=== PATIENT | female | born 1955 | race Caucasian/White ===

== ENCOUNTER 2016-04-15 00:16 | Inpatient (IN) | payer MEDICARE, MEDICAID ==
[2016-04-15] MEDS ORDERED: IOPAMIDOL 370 (76%) 100 ML VIAL IV ONE (00:17)
[2016-04-15] MEDS ORDERED: KETAMINE HCL 50 MG/1 ML 10ML VIAL ONE (00:25)
[2016-04-15] MEDS ORDERED: SODIUM CHLORIDE 0.9% 1,000 ML ONE (00:32)
[2016-04-15] MEDS ORDERED: LACTATED RINGERS 1,000 ML ONE ×2 (00:46→01:42)
[2016-04-15 00:51] LABS: ABSOLUTE NEUTROPHIL COUNT 10.1 K/mm3 (1.8-7.7); BASO % 0.3 % (0.2-1.0); EOS % 0.1 % (0.9-2.9); HEMATOCRIT 38.4 % (37.0-47.0); HEMOGLOBIN 12.3 gm/l (12.0-16.0); IMM NEUT # 0.1 K/mm3 (0-0.2); IMM NEUT% 0.7 % (0-1); LYMPH # 1.1 (1.0-4.8); LYMPH % 9.6 % (15-45); MEAN CELL VOLUME 91.2 fl (81.0-99.0); MEAN CORPUSCULAR HEMOGLOBIN 29.2 pg (27.0-31.0); MONO # 0.4 (0.0-0.8); MONO % 3.4 % (4-12); NEUT % 85.9 % (43-75); PLATELET COUNT 233 K/mm3 (130-400); RED CELL DISTRIBUTION WIDTH 14.4 % (11.5-14.5)
[2016-04-15 01:10] LABS: ALBUMIN 3.3 gm/dL (3.5-5.7); CALCIUM 8.5 mg/dL (8.6-10.3)
[2016-04-15 01:35] LABS: TROPONIN I 0.34 ng/ml (0.0-0.06)
[2016-04-15 01:38] LABS: CKMB ISOENZYME 3.6 ng/ml (0.6-6.3)
[2016-04-15] MEDS ORDERED: ASPIRIN CHEWTAB 81 MG TABLET ONE (01:41)
[2016-04-15 01:44] LABS: THYROID STIMULATING HORMONE 1.73 uIU/ml (0.34-5.60)
[2016-04-15 04:40] VITALS: BMI 52.7
[2016-04-15] MEDS ORDERED: BISACODYL 10 MG SUP PR PRN (05:14)
[2016-04-15] MEDS ORDERED: MAGNESIUM HYDROXIDE 30 ML UDCUP PO PRN (05:14)
[2016-04-15] MEDS ORDERED: BISACODYL 5 MG TABLET.EC PO PRN (05:14)
[2016-04-15] MEDS ORDERED: MENTHOL/CETYLPYRD 1 EACH LOZENGE PO PRN (05:14)
[2016-04-15] MEDS ORDERED: BLISTEX LIPSTICK 1 EACH TP PRN (05:14)
[2016-04-15] MEDS ORDERED: AZITHROMYCIN 500 MG in SODIUM CHLORIDE 0.9% 250 ML IV SCH (05:15)
[2016-04-15] MEDS ORDERED: INSULIN ASPART (DOSE) 100 UNITS/1 ML SUB-Q PRN (05:35)
[2016-04-15] MEDS ORDERED: CEFTRIAXONE 1 GRAM DUPLEX 1 G in Premix (D5W) 50 ml 1 EACH IV SCH (06:00)
--- NOTE | 2016-04-15 07:00 | HP ---
Leticia Boone CHIEF COMPLAINT: Dyspnea. HISTORY OF PRESENT ILLNESS: The patient is a 61-year-old female with a history of atrial fibrillation intermittently over the last five years who presents to the emergency department regarding dyspnea x2 days. She has had a cough with malaise and some subjective fevers. She tried an inhaler at home without much improvement. In the emergency department she was noted to have atrial fibrillation with rapid ventricular response with a tachycardia to 160 beats minute and underwent cardioversion with Ketamine. She had a normal CK at that time. Post-cardioversion she reports feeling much better with resolution of her headache and her dyspnea has improved although, she still has chest wheezing and feels a little dizzy. She does acknowledge missing a dose of metoprolol the day before yesterday when she was sick. Emergency room doctors had spoken with ditto machine operator and they requested consideration for a follow up echocardiogram. Her CTA of the chest did not show a pulmonary embolus, but did have a suggestion of infiltrate with some small pleural effusion noted. PAST MEDICAL HISTORY: Patient denies history of diabetes. She has had atrial fibrillation and has been on Pradaxa, hyperlipidemia, hypertension, morbid obesity, and osteoarthritis. PAST SURGICAL HISTORY: Remarkable for coronary angiogram in 2011, RENATA 2011, 65% ejection fraction noted at that time, moderate left ventricular hypertrophy, colonoscopy 2016 with two polyps noted, history of surgery for broken leg, and a carpal tunnel surgery bilaterally. ALLERGIES: LISTED CODEINE CAUSES NAUSEA. MEDICATIONS: She takes: 1. Pradaxa 150 mg by mouth twice daily. 2. She reports taking Arthrotec 75/200 mcg by mouth twice daily, but in the generic form which are not a combined medicine. 3. Metoprolol XL 25 plus 50 mg for a total of 75 mg daily. SOCIAL HISTORY: She is single, not . Lives alone in [place]. Daughter lives in [place]. She is on disability due to her arthritis. She does not smoke. Reports less than two drinks per week. Occasional marijuana use. She denies methamphetamines. Pets: She has a dog. No particular synagogue affiliation. Hobbies include crocheting, reading, gardening, and volunteering although, she is limited by her arthritis. FAMILY HISTOR: Father is 87 and he has had a history of colon cancer which has reoccurred recently. Mom at 65 of leukemia. Daughter has been healthy. REVIEW OF SYSTEMS: Eyes, ears, nose and throat have been okay. A little stuffy nose and a little sore throat. Cough with no phlegm produced. She does not normally use supplemental oxygen. She has had no particular chest discomfort at this time. No chest pain. She does have intermittent atrial fibrillation and is on Pradaxa and metoprolol for this. The metoprolol usually keeps her in normal sinus rhythm. She has not been on any cough or cold medicines recently. The wheezing has been increased recently. Stomach: Some nausea. A little bit of loose stools. No black tarry stools. No urinary complaints. No breast complaints. Legs: A little bit of swelling noted. She notes she has some circulation difficulties. No history of stroke. She does not have a POLST form. She did get a flu shot this year, but states she has not had a pneumonia shot. PHYSICAL EXAMINATION: GENERAL: Nontoxic female. Slight upper airway wheezing noted. VITAL SIGNS: 5 feet, 4 inches, 139.4 kg, temperature 97.7, blood pressure 147/84, respiration is 18, 99% saturation on 4 liters. HEENT: Head is normocephalic, atraumatic. Ears are unremarkable. Ears are normal. Nose is normal. Mouth unremarkable. NECK: Supple. No JVD, no thyromegaly. LUNGS: With some upper chest and upper airway wheezing noted. Lateral lower chest with fairly good air movement with bronchovesicular sounds. HEART: Generally regular rate and rhythm with a 2/6 systolic murmur noted across the pericardium. ABDOMEN: Obese, nontender, nondistended. Bowel sounds are normal. No rebound, no guarding. GENITOURINARY: Deferred. BREAST: Deferred. EXTREMITIES: No clubbing, cyanosis, or edema. Pulses are good throughout. NEUROLOGIC: Cranial nerves are intact. Speech is clear and appropriate. LABORATORY: White count 11.7, hemoglobin 12.3, platelets 233. Lactate 1.7. Sodium 134, potassium 3.6, chloride 100, CO2 22, BUN 17, creatinine 1.1, glucose 179, calcium 8.5. AST 118, ALT 82, alk phos is 87, troponin 0.34, CK-MB 3.6, albumin 3.3, globulin 3.3. TSH is 1.73. DIAGNOSTICS: EKG atrial fibrillation with rapid ventricular response 160 beats per minute lateral converted to normal sinus rhythm 79 beats per minute, right atrial enlargement, nonspecific T-wave abnormalities. CTA of the chest shows no pulmonary embolism, no dissection, but there are some pulmonary infiltrates, right greater than left particular in the upper lung greene, small pleural effusion is noted, nonspecific mediastinal lymph nodes. ASSESSMENT AND PLAN: 1. Episode of atrial fibrillation with paroxysmal atrial fibrillation now much improved after cardioversion and denominational of normal sinus rhythm under Ketamine. Appreciate emergency room care and cardioversion. Continue on telemetry Intermediate Care Unit. We will monitor and plan to check echocardiogram. 2. CTA with changes suggestive of community acquired pneumonia suspect bacterial community acquired pneumonia. Will check sputum and will also check influenza. Anticipate use of Rocephin, azithromycin and will consider for nebulizer as needed although, would seek to avoid significant tachycardia. 3. Morbid obesity, body mass index 52.8. 4. Elevated liver enzymes. Suspect nonalcoholic steatohepatitis. 5. Elevated troponin with normal CK. Suspect this strain from tachycardia. Will recheck and will be checking echocardiogram. 6. Osteoarthritis on Arthrotec. Will add proton pump inhibitor for the time being particularly in the setting of being on Pradaxa as this would increase her risk for gastrointestinal bleed. Will add Protonix due to being on Pradaxa. The misoprostol offers some degree of protection from Diclofenac, but still with concern for a potential for gastrointestinal bleed. 7. History of dyslipidemia. Patient reports she is not taking her Crestor currently. 8. Venous thrombosis prophylaxis. She is on Pradaxa. 9. Full code status. 10. Elevated blood sugars. Will check A1c and consider monitoring capillary blood glucoses while she is here. JOB: [id number] CC: Dr. Macy Hidalgo, MARVIN
[2016-04-15] MEDS ORDERED: PUMP TUBING ONE (07:32)
--- NOTE | 2016-04-15 07:40 | CT ---
Exam: CT angiogram chest with contrast Comparison: None History: Hypotension and dyspnea. Technique: CT angiogram of the chest was obtained following the administration of 80 mL Isovue-370 intravenous contrast using a CT angiogram pulmonary embolism protocol which was supplemented with multiplanar 3-D reformations constructed at an independent workstation. Findings: Examination is limited due to motion artifact. There is no evidence of acute pulmonary thromboembolic disease through the proximal subsegmental level. There is patchy centrally predominant airspace disease throughout the right lung, more pronounced within the right upper lobe. Similar findings but to a much lesser extent are seen within the left upper lobe. This is on a background of mosaic attenuation, which could be related to chronic small airways disease. There are tiny bilateral pleural effusions. There is no significant pericardial effusion. Coronary calcifications are noted within the proximal LAD. There is mild panchamber cardiomegaly. Mediastinal and hilar lymph nodes are more significant for number rather than size Limited evaluation of the upper abdomen demonstrates hepatic steatosis but is otherwise unremarkable. No worrisome lytic or blastic osseous lesion is identified. Bridging osteophytes are seen within the thoracic spine. IMPRESSION: 1. Patchy centrally predominant airspace disease, right much greater than left, most pronounced within the right upper lobe. Differential considerations include pneumonia or asymmetric pulmonary edema. Tiny bilateral pleural effusions are present. 2. No evidence of acute pulmonary thromboembolic disease to the proximal subsegmental level. Preliminary report transmitted to the emergency department from [address] at 0230 hours 04/15/2016.
[2016-04-15] MEDS: PANTOPRAZOLE 40 MG TABLET DR PO SCH (07:44)
[2016-04-15] MEDS: CEFTRIAXONE 1 GRAM DUPLEX 1 G in Premix (D5W) 50 ml 1 EACH IV SCH (07:44)
[2016-04-15] MEDS: AZITHROMYCIN 500 MG in SODIUM CHLORIDE 0.9% 250 ML IV SCH (08:11)
[2016-04-15] MEDS: METOPROLOL SUCCINATE (XL) 50 MG TAB.PRT.SR PO SCH ×2 (08:50→20:56)
[2016-04-15] MEDS: DICLOFENAC SODIUM 75 MG TABLET.EC PO SCH ×2 (08:50→20:59)
[2016-04-15] MEDS: MISOPROSTOL 100 MCG TABLET PO SCH ×2 (08:50→20:58)
[2016-04-15] MEDS ORDERED: PNEUMOCOCCAL 23-VAL P-SAC VAC 0.5 ML VIAL IM V ONE (09:00)
[2016-04-15] MEDS ORDERED: DABIGATRAN ETEXILATE MESYLATE 150 MG CAPSULE PO SCH (09:00)
[2016-04-15] MEDS: DOCUSATE SODIUM 100 MG CAPSULE PO SCH ×2 (09:20→20:56)
[2016-04-15 11:28] LABS: A1C-GLYCOHEMOGLOBIN 0.4 g/dl; HEMOGLOBIN-GLYCO 11.7 g/dl
[2016-04-15] MEDS: DABIGATRAN ETEXILATE MESYLATE 75 MG CAPSULE PO SCH (21:02)
[2016-04-16 05:40] LABS: ABSOLUTE NEUTROPHIL COUNT 5.1 K/mm3 (1.8-7.7); BASO % 0.6 % (0.2-1.0); EOS # 0.1 (0.0-0.5); EOS % 1.6 % (0.9-2.9); HEMATOCRIT 35.2 % (37.0-47.0); IMM NEUT% 0.6 % (0-1); LYMPH # 0.7 (1.0-4.8); LYMPH % 10.9 % (15-45); MEAN CELL VOLUME 93.9 fl (81.0-99.0); MEAN CORPUSCULAR HEMOGLOBIN 29.3 pg (27.0-31.0); MEAN CORPUSCULAR HGB CONC 31.3 g/dl (33.0-37.0); MEAN PLATELET VOLUME 10.9 fl (7.4-10.4); MONO # 0.4 (0.0-0.8); NEUT % 80.3 % (43-75); PLATELET COUNT 192 K/mm3 (130-400); RED CELL DISTRIBUTION WIDTH 14.5 % (11.5-14.5)
[2016-04-16 05:59] LABS: CALCIUM 8.3 mg/dL (8.6-10.3)
[2016-04-16 06:01] LABS: CKMB ISOENZYME 5.2 ng/ml (0.6-6.3)
[2016-04-16 06:07] LABS: TROPONIN I 1.92 ng/ml (0.0-0.06)
[2016-04-16] MEDS: PANTOPRAZOLE 40 MG TABLET DR PO SCH (07:36)
[2016-04-16] MEDS: AZITHROMYCIN 500 MG in SODIUM CHLORIDE 0.9% 250 ML IV SCH (07:36)
[2016-04-16] MEDS: ACETAMINOPHEN 325 MG TABLET PO PRN ×2 (08:15→16:53)
[2016-04-16] MEDS: CEFTRIAXONE 1 GRAM DUPLEX 1 G in Premix (D5W) 50 ml 1 EACH IV SCH (08:32)
--- NOTE | 2016-04-16 09:54 | PDOC43 ---
- Subjective Chief Complaint: Rapid Heart Rate, s/p conversion Patient reports she was feeling pretty good yesterday, but last night/today has had a lot of wheezing/cough, and notes stomach a bit upset. HR has been doing ok. She has spoken with her PCP about NSAIDs and use of anticoagulants. She is aware of increased risks of significant bleeding, but this was the best solution for her (Arthrotec). Did suggest she could review other options with PCP about celebrex and/or use of a PPI. - Objective Vital Signs Temperature 98.9 F 04/16/16 07:00 Pulse Rate 66 04/16/16 07:00 Respiratory Rate 28 04/16/16 09:00 Blood Pressure 145/85 04/16/16 07:00 O2 Saturation by Pulse Oximetry 92 04/16/16 08:28 Oxygen Delivery Method Room Air Oxygen Flow Rate 0 Vital Signs Last 12 Hours Temp Pulse Resp BP Pulse Ox 04/16/16 09:00 28 04/16/16 08:28 92 04/16/16 07:00 98.9 F 66 28 145/85 96 04/16/16 02:42 26 04/16/16 02:40 98.1 F 64 26 144/72 95 04/15/16 23:00 98.6 F 86 24 133/61 97 Sats ok, but nurse left O2 on. Intake and Output 04/14/16 04/15/16 04/16/16 23:59 23:59 23:59 Intake Total 3308 500 Output Total 1675 600 Balance 1633 -100 General: Alert, Cooperative, Mild Distress (did have some crying last night, difficulty with breathing/cough.) HEENT: Atraumatic Lungs: Other (considerable bilat wheezes, more upper airway.) Cardiovascular: Regular Rate and Rhythm Abdomen: Soft, Normal Bowel Sounds, No Tenderness, No Rebounding Extremities: No Edema Skin: Normal Color Neurological: Normal Speech Psych/Mental Status: Normal Affect (anxious) Laboratory 04/16/16 05:20 04/16/16 05:20 04/16/16 04/15/16 04/15/16 05:20 12:10 12:08 RBC 3.75 L MCHC 31.3 L POC Capillary Glucose 102 H Calcium 8.3 L AST 75 H ALT 80 H Creatine Kinase 301 H CK-MB (CK-2) Troponin I 1.92 H* 3.64 H* Total Protein 6.1 L Albumin 3.0 L 04/15/16 12:00 RBC MCHC POC Capillary Glucose Calcium AST ALT Creatine Kinase 453 H CK-MB (CK-2) 21.9 H Troponin I Total Protein Albumin Laboratory Tests 04/15/16 04/15/16 04/15/16 00:30 12:00 12:10 Creatine Kinase CK-MB (CK-2) 3.6 21.9 H Troponin I 0.34 H 3.64 H* 04/16/16 05:20 Creatine Kinase 301 H CK-MB (CK-2) 5.2 Troponin I 1.92 H* Current Medications: Current meds reviewed in EMR. Active Medications Acetaminophen (Tylenol) 650 mg PO Q6H PRN PRN Reason: Pain or Temperature > 100.5 F Last Admin: 04/16/16 08:15 Dose: 650 mg Benzocaine/Menthol (Cepacol) 1 each PO PRN PRN PRN Reason: Sore Throat Bisacodyl (Dulcolax) 10 mg [place] DAILY PRN PRN Reason: Constipation Bisacodyl (Dulcolax) 5 mg PO DAILY PRN PRN Reason: Constipation Dabigatran (Pradaxa) 150 mg PO BID [facility] Last Admin: 04/15/16 21:02 Dose: 150 mg Diclofenac Sodium (Voltaren) 75 mg PO BID [facility] Last Admin: 04/15/16 20:59 Dose: 75 mg Docusate Sodium (Colace) 100 mg PO BID [facility] Last Admin: 04/15/16 20:56 Dose: Not Given Sodium Chloride (Sodium Chloride 0.9%) 100 mls @ 25 mls/hr IV PRN PRN PRN Reason: Flush Azithromycin 500 mg/ Sodium (Chloride) 250 mls @ 250 mls/hr IV Q24H [facility] Last Admin: 04/16/16 07:36 Dose: 250 mls/hr Ceftriaxone Sodium/Dextrose 1 (g/ Premix (D5W) 50 ml) 50 mls @ 100 mls/hr IV Q24H [facility] Last Admin: 04/16/16 08:32 Dose: 100 mls/hr Insulin Aspart (Novolog (Dose)) 0 units SUB-Q WM/BEDTIME PRN; Protocol PRN Reason: Blood Sugar > Magnesium Hydroxide (Milk Of Magnesia) 30 ml PO DAILY PRN PRN Reason: Constipation Metoprolol Succinate (Toprol Xl) 25 mg PO DAILY [facility] Last Admin: 04/15/16 08:50 Dose: 25 mg Metoprolol Succinate (Toprol Xl) 50 mg PO BEDTIME [facility] Last Admin: 04/15/16 20:56 Dose: 50 mg Misoprostol (Cytotec) 200 mcg PO BID [facility] Last Admin: 04/15/16 20:58 Dose: 200 mcg Pantoprazole Sodium (Protonix) 40 mg PO QAMAC [facility] Last Admin: 04/16/16 07:36 Dose: 40 mg Petrolatum/Paraffin/Mineral Oil (Blistex) 1 each TP PRN PRN PRN Reason: Dry and/or chapped lips Sodium Chloride (Normal Saline 10ml Flush) 10 - 50 ml IV PRN PRN PRN Reason: IV Flush Last Admin: 04/15/16 07:45 Dose: 10 ml Sodium Chloride (Normal Saline 10ml Flush) 10 ml IV Q8HR [facility] Last Admin: 04/16/16 02:34 Dose: 10 ml - Problems: Assessment/Plan (1) CAP (community acquired pneumonia) Status: AcuteAssessment/Plan: Continue with abx, recheck CXR. With wheezing, will try nebs. (2) Atrial fibrillation status post cardioversion Status: ChronicAssessment/Plan: appears to be doing well post cardioversion. (3) Morbid obesity with BMI of 50.0-59.9, adult Status: ChronicAssessment/Plan: affecting respiration, care. VTE Prophylaxis: Eliquis Disposition: Plan Med/Surg, check CXR, and anticipate return to home when respiratory status improved.
[2016-04-16] MEDS: ALBUTEROL/IPRATROPIUM 2.5/0.5 MG 3 ML/EACH DOSE NEB PRN ×2 (10:27→16:15)
[2016-04-16] MEDS: METOPROLOL SUCCINATE (XL) 50 MG TAB.PRT.SR PO SCH ×2 (10:35→20:11)
[2016-04-16] MEDS: DABIGATRAN ETEXILATE MESYLATE 75 MG CAPSULE PO SCH ×2 (10:35→20:11)
[2016-04-16] MEDS: DOCUSATE SODIUM 100 MG CAPSULE PO SCH ×2 (10:35→20:10)
[2016-04-16] MEDS: DICLOFENAC SODIUM 75 MG TABLET.EC PO SCH ×2 (10:35→20:10)
[2016-04-16] MEDS: MISOPROSTOL 100 MCG TABLET PO SCH ×2 (10:35→20:10)
--- NOTE | 2016-04-16 11:05 | RAD ---
Name: ISHA MEJÍA Exam: Two-view chest Comparison: 11/08/2011 Clinical history: Wheezing Findings: 2 views of the chest are submitted. Heart, mediastinum and hilar structures are normal. There is mild diffuse infiltrate right lung and a small amount of infiltrate left lung. Appearance of the chest is worsened from the prior. There is no pleural effusion or pneumothorax. Regional skeleton is within normal limits. Impression: Developing right greater than left pneumonia
[2016-04-16] MEDS ORDERED: ALBUTEROL NEB 2.5 MG/3 ML VIAL.NEB NEB PRN (20:32)
--- NOTE | 2016-04-17 06:45 | PDOC43 ---
- Subjective Chief Complaint: Rapid Heart Rate, s/p conversion; CAP Patient reports not sleeping well due to breathing, but better than the previous night. Ate some, able to get around some, didn't try walking or showering. No new c/o. - Objective Vital Signs Temperature 98.1 F 04/17/16 04:00 Pulse Rate 61 04/17/16 04:00 Respiratory Rate 20 04/17/16 04:00 Blood Pressure 129/82 04/17/16 04:00 O2 Saturation by Pulse Oximetry 97 04/17/16 04:00 Oxygen Delivery Method Nasal Cannula Oxygen Flow Rate 2 Vital Signs Last 12 Hours Temp Pulse Resp BP Pulse Ox 04/17/16 04:00 98.1 F 61 20 129/82 97 04/17/16 01:10 22 04/17/16 00:00 99.0 F 72 22 121/66 96 04/16/16 20:44 71 18 95 04/16/16 20:21 36 95 04/16/16 19:41 34 04/16/16 19:00 97.9 F 74 22 125/72 95 Intake and Output 04/15/16 04/16/16 04/17/16 23:59 23:59 23:59 Intake Total 3308 1100 750 Output Total 1675 1075 700 Balance 1633 25 50 General: Alert, Cooperative, No Acute Distress Lungs: Other (Wheezing R>L, prolonged exp phase.) Cardiovascular: Regular Rate and Rhythm Abdomen: Soft, Normal Bowel Sounds, Non-Distended Extremities: No Edema, No Tenderness Neurological: Normal Speech Psych/Mental Status: Normal Affect Laboratory 04/16/16 05:20 04/16/16 05:20 04/16/16 05:15 B-Natriuretic Peptide 180 H Blood culture pending - neg so far Sputum culture pending so far. Current Medications: Current meds reviewed in EMR. Active Medications Acetaminophen (Tylenol) 650 mg PO Q6H PRN PRN Reason: Pain or Temperature > 100.5 F Last Admin: 04/16/16 16:53 Dose: 650 mg Albuterol Sulfate (Ventolin Inhalation Solution (Dose)) 2.5 mg NEB Q2H PRN PRN Reason: Wheezing Last Admin: 04/16/16 20:44 Dose: 2.5 mg Albuterol/Ipratropium (Duoneb) 3 ml NEB Q6H PRN PRN Reason: Wheezing Last Admin: 04/16/16 16:15 Dose: 3 ml Benzocaine/Menthol (Cepacol) 1 each PO PRN PRN PRN Reason: Sore Throat Bisacodyl (Dulcolax) 10 mg [place] DAILY PRN PRN Reason: Constipation Bisacodyl (Dulcolax) 5 mg PO DAILY PRN PRN Reason: Constipation Dabigatran (Pradaxa) 150 mg PO BID [facility] Last Admin: 04/16/16 20:11 Dose: 150 mg Diclofenac Sodium (Voltaren) 75 mg PO BID [facility] Last Admin: 04/16/16 20:10 Dose: 75 mg Docusate Sodium (Colace) 100 mg PO BID [facility] Last Admin: 04/16/16 20:10 Dose: Not Given Sodium Chloride (Sodium Chloride 0.9%) 100 mls @ 25 mls/hr IV PRN PRN PRN Reason: Flush Azithromycin 500 mg/ Sodium (Chloride) 250 mls @ 250 mls/hr IV Q24H [facility] Last Admin: 04/16/16 07:36 Dose: 250 mls/hr Ceftriaxone Sodium/Dextrose 1 (g/ Premix (D5W) 50 ml) 50 mls @ 100 mls/hr IV Q24H [facility] Last Admin: 04/16/16 08:32 Dose: 100 mls/hr Insulin Aspart (Novolog (Dose)) 0 units SUB-Q WM/BEDTIME PRN; Protocol PRN Reason: Blood Sugar > Magnesium Hydroxide (Milk Of Magnesia) 30 ml PO DAILY PRN PRN Reason: Constipation Metoprolol Succinate (Toprol Xl) 25 mg PO DAILY [facility] Last Admin: 04/16/16 10:35 Dose: 25 mg Metoprolol Succinate (Toprol Xl) 50 mg PO BEDTIME [facility] Last Admin: 04/16/16 20:11 Dose: 50 mg Misoprostol (Cytotec) 200 mcg PO BID [facility] Last Admin: 04/16/16 20:10 Dose: 200 mcg Pantoprazole Sodium (Protonix) 40 mg PO QAMAC [facility] Last Admin: 04/16/16 07:36 Dose: 40 mg Petrolatum/Paraffin/Mineral Oil (Blistex) 1 each TP PRN PRN PRN Reason: Dry and/or chapped lips Sodium Chloride (Normal Saline 10ml Flush) 10 - 50 ml IV PRN PRN PRN Reason: IV Flush Last Admin: 04/15/16 07:45 Dose: 10 ml Sodium Chloride (Normal Saline 10ml Flush) 10 ml IV Q8HR [facility] Last Admin: 04/17/16 00:53 Dose: 10 ml - Problems: Assessment/Plan (1) CAP (community acquired pneumonia) Status: AcuteAssessment/Plan: Presumed bacterial; organism not known. Present on admission/evident on CXR within 48 hr of admission Continue with abx, recheck CXR showed R>L pneumonia. Nebs somewhat helpful with wheezing On O2 supplement for resp distress. Encouraged activity, shower. (2) Atrial fibrillation status post cardioversion Status: ChronicAssessment/Plan: appears to be doing well post cardioversion. Stable rate Suspect that pneumonia was initial provoking cause for atrial fib (3) Morbid obesity with BMI of 50.0-59.9, adult Status: ChronicAssessment/Plan: affecting respiration, care. VTE Prophylaxis: Eliquis Disposition: anticipate return to home when respiratory status improving.
[2016-04-17] MEDS ORDERED: SODIUM CHLORIDE 0.9% 1,000 ML IV SCH (07:00)
--- NOTE | 2016-04-17 07:24 | RAD ---
History: Follow-up pneumonia. Comparison: 04/16/2016 Technique: 2 views Findings: 2 views of the chest demonstrate multilevel thoracic degenerative changes. The heart size is stable. Patchy areas of airspace density are seen within both lower lung zones, right greater than left. The appearance is unchanged from the appearance on prior exam. No effusion is seen. The hilar and mediastinal structures are intact. Impression: 1. Bibasilar infiltrates, right greater than left. The appearance is unchanged from the appearance on prior exam of 04/16/2016.
[2016-04-17] MEDS: ALBUTEROL/IPRATROPIUM 2.5/0.5 MG 3 ML/EACH DOSE NEB PRN ×2 (07:38→16:35)
[2016-04-17] MEDS ORDERED: PUMP TUBING ONE (07:39)
[2016-04-17] MEDS: AZITHROMYCIN 500 MG in SODIUM CHLORIDE 0.9% 250 ML IV SCH (07:48)
[2016-04-17] MEDS: PANTOPRAZOLE 40 MG TABLET DR PO SCH (07:49)
[2016-04-17] MEDS: SODIUM CHLORIDE 0.9% 100 ML IV PRN (07:49)
[2016-04-17] MEDS: CEFTRIAXONE 1 GRAM DUPLEX 1 G in Premix (D5W) 50 ml 1 EACH IV SCH (09:10)
[2016-04-17] MEDS: ACETAMINOPHEN 325 MG TABLET PO PRN (09:52)
[2016-04-17] MEDS: METOPROLOL SUCCINATE (XL) 50 MG TAB.PRT.SR PO SCH ×2 (09:52→20:54)
[2016-04-17] MEDS: DOCUSATE SODIUM 100 MG CAPSULE PO SCH ×2 (09:52→20:54)
[2016-04-17] MEDS: MISOPROSTOL 100 MCG TABLET PO SCH ×2 (09:54→20:54)
[2016-04-17] MEDS: DABIGATRAN ETEXILATE MESYLATE 75 MG CAPSULE PO SCH ×2 (09:55→20:54)
[2016-04-17] MEDS: DICLOFENAC SODIUM 75 MG TABLET.EC PO SCH ×2 (09:55→20:54)
[2016-04-18 06:20] LABS: ABSOLUTE NEUTROPHIL COUNT 2.5 K/mm3 (1.8-7.7); BASO % 0.7 % (0.2-1.0); EOS # 0.2 (0.0-0.5); EOS % 3.7 % (0.9-2.9); HEMATOCRIT 35.7 % (37.0-47.0); HEMOGLOBIN 11.3 gm/l (12.0-16.0); IMM NEUT% 0.6 % (0-1); LYMPH # 2.3 (1.0-4.8); LYMPH % 41.8 % (15-45); MEAN CELL VOLUME 93.2 fl (81.0-99.0); MEAN CORPUSCULAR HEMOGLOBIN 29.5 pg (27.0-31.0); MEAN CORPUSCULAR HGB CONC 31.7 g/dl (33.0-37.0); MEAN PLATELET VOLUME 10.2 fl (7.4-10.4); MONO # 0.4 (0.0-0.8); MONO % 6.6 % (4-12); NEUT % 46.6 % (43-75); PLATELET COUNT 225 K/mm3 (130-400); RED CELL DISTRIBUTION WIDTH 14.1 % (11.5-14.5)
[2016-04-18 06:45] LABS: ALBUMIN 3.1 gm/dL (3.5-5.7); CALCIUM 9.4 mg/dL (8.6-10.3)
[2016-04-18 07:17] LABS: PLATELET ESTIMATE NORMAL (NORMAL); TOTAL CELLS COUNTED 100
[2016-04-18 07:22] LABS: BAND 0 % (0-10); BASOPHIL 1 % (0-1); EOSINOPHIL 4 % (1-3); LYMPHOCYTE 44 % (15-45); MONOCYTE 8 % (4-12); NEUTROPHILS 43 % (43-75)
[2016-04-18] MEDS ORDERED: PUMP TUBING ONE (08:02)
[2016-04-18] MEDS: PANTOPRAZOLE 40 MG TABLET DR PO SCH (08:07)
[2016-04-18] MEDS: SODIUM CHLORIDE 0.9% 100 ML IV PRN (08:08)
[2016-04-18] MEDS: AZITHROMYCIN 500 MG in SODIUM CHLORIDE 0.9% 250 ML IV SCH (08:11)
[2016-04-18] MEDS: ALBUTEROL/IPRATROPIUM 2.5/0.5 MG 3 ML/EACH DOSE NEB PRN (08:40)
[2016-04-18] MEDS: DOCUSATE SODIUM 100 MG CAPSULE PO SCH (08:59)
[2016-04-18] MEDS: DABIGATRAN ETEXILATE MESYLATE 75 MG CAPSULE PO SCH (09:08)
[2016-04-18] MEDS: METOPROLOL SUCCINATE (XL) 50 MG TAB.PRT.SR PO SCH (09:09)
[2016-04-18] MEDS: DICLOFENAC SODIUM 75 MG TABLET.EC PO SCH (09:11)
[2016-04-18] MEDS: MISOPROSTOL 100 MCG TABLET PO SCH (09:11)
[2016-04-18] MEDS: CEFTRIAXONE 1 GRAM DUPLEX 1 G in Premix (D5W) 50 ml 1 EACH IV SCH (09:24)
[2016-04-18 12:22] VITALS: BP 180/97
--- NOTE | 2016-04-18 16:36 | DS ---
ISHA MEJÍA [id number] DATE OF ADMISSION: April 15, 2016 DATE OF DISCHARGE: April 18, 2016 DISCHARGE DIAGNOSIS: 1. A community acquired bacterial pneumonia with bronchospasm, dyspnea and mild hypoxia. 2. Troponin elevation felt to be due to cardiac strain and electrocardioversion. OTHER DIAGNOSES: Include: 1. Morbid obesity with obstructive sleep apnea intolerant to CPAP therapy. 2. Chronic essential hypertension. 3. Atrial fibrillation, paroxysmal, associated with tachycardia. PROCEDURES PERFORMED DURING THE HOSPITALIZATION: Included: 1. Electrocardioversion performed in the emergency department on April 15, 2016. 2. The patient also had an echocardiogram performed on April 15, 2016 showing severe left atrial enlargement, mild concentric left ventricular hypertrophy, normal wall motion, normal ejection fraction of 60 to 65%. Normal right ventricular size and function. SUMMARY OF ADMISSION AND HOSPITAL COURSE: The patient is a 61-year-old female with a history of paroxysmal atrial fibrillation on chronic anticoagulant therapy who presented to the [facility] Emergency Department with complaints of a two-day history of dyspnea associated with cough and fever. On presentation, she was noted to be tachycardic with a heart rate up to 160 beats per minute associated with systolic blood pressures less than 100. She had electrocardioversion performed with ketamine sedation which was successful. Her workup included a CBC showing an elevated white blood cell count and CT angiogram showing evidence of patchy airspace disease in the right upper lobe consistent with pneumonia. She was admitted by the hospitalist service and treated with Rocephin and Zithromax. During her hospital stay, she had persistent wheezing which was responsive to albuterol. She was successfully weaned to room air on the day of discharge. She had no hypoxia despite activity. She was felt to be medically stable for discharge. She completed a three-day course of Zithromax during her stay. PHYSICAL EXAM: VITAL SIGNS: Vital signs at discharged showed a temperature of 97.6, pulse 58, blood pressure is 152/89, respirations 18, oxygen saturation 94% on room air. Body mass index 55.0, weight 145.4 kilograms. GENERAL: This is an obese female in mild respiratory distress. LUNGS: Shows scattered inspiratory and expiratory wheezes, no retractions. CARDIOVASCULAR: Exam reveals a regular rate and rhythm without a murmur. EXTREMITIES: Show no peripheral edema. LABORATORY STUDIES: Showed a CBC showing a white count of 5.4, hemoglobin 11.3, and a platelet count of 225,000. Chemistry profile showed normal electrolytes and creatinine of 0.6. DISPOSITION: Home. DISCHARGE CONDITION: Fair. CODE STATUS: FULL CODE. ALLERGIES: REPORTED TO CODEINE. DISCHARGE MEDICATIONS: Include: 1. Ceftin 500 mg twice daily for ten days. 2. Albuterol 2.5 mg to be nebulized every four hours as needed for wheezing. She will get a nebulizer. She will resume her previous home medications which included: 1. Arthrotec 75/200 mcg one pill twice daily. 2. Pradaxa 150 mg twice daily. 3. Toprol XL 75 mg daily. FOLLOWUP: She has followup scheduled with Haley Hidalgo N.P. on April 21, 2016 at 11:00 a.m. She received a pneumococcal vaccination during her stay on April 15, 2016. Cc: Crystal Carbajal
== END 2016-04-18 14:40 | disposition home or self-care (01) | DRG 194 ==
LOC: ED 00:16 → ICU 03:40 → MS 04-16 15:47
PROVIDERS: ADMIT Family Medicine; ATTEND Family Medicine
DX: J15.9 Unspecified bacterial pneumonia (principal); Z68.43 Body mass index [BMI] 50.0-59.9, adult; J98.01 Acute bronchospasm; R09.02 Hypoxemia; E78.5 Hyperlipidemia, unspecified; I10 Essential (primary) hypertension; E66.01 Morbid (severe) obesity due to excess calories; M19.90 Unspecified osteoarthritis, unspecified site; I48.0 Paroxysmal atrial fibrillation; K75.81 Nonalcoholic steatohepatitis (NASH); R00.0 Tachycardia, unspecified; Z79.01 Long term (current) use of anticoagulants; J18.9 Pneumonia, unspecified organism; G47.33 Obstructive sleep apnea (adult) (pediatric)

== ENCOUNTER 2016-05-09 03:09 | Emergency (ER) | payer MEDICARE, MEDICAID ==
[2016-05-09] MEDS ORDERED: SODIUM CHLORIDE 0.9% 1,000 ML ONE (03:34)
[2016-05-09] MEDS ORDERED: PROPOFOL 20 ML IV ONE (03:34)
[2016-05-09 03:41] LABS: ABSOLUTE NEUTROPHIL COUNT 4.8 K/mm3 (1.8-7.7); BASO # 0.1 K/mm3 (0.0-0.2); BASO % 0.9 % (0.2-1.0); EOS # 0.3 (0.0-0.5); EOS % 3.1 % (0.9-2.9); HEMATOCRIT 41.4 % (37.0-47.0); IMM NEUT% 0.2 % (0-1); LYMPH # 2.9 (1.0-4.8); LYMPH % 33.6 % (15-45); MEAN CELL VOLUME 92.2 fl (81.0-99.0); MEAN CORPUSCULAR HGB CONC 31.4 g/dl (33.0-37.0); MEAN PLATELET VOLUME 11.2 fl (7.4-10.4); MONO # 0.5 (0.0-0.8); MONO % 6.2 % (4-12); PLATELET COUNT 241 K/mm3 (130-400); RED CELL DISTRIBUTION WIDTH 14.2 % (11.5-14.5)
[2016-05-09 03:55] LABS: ALB/GLOB RATIO 1.1 (>1.0); ALBUMIN 3.4 gm/dL (3.5-5.7); CALCIUM 8.8 mg/dL (8.6-10.3)
[2016-05-09 03:57] LABS: TROPONIN I < 0.01 ng/ml (0.0-0.06)
[2016-05-09 04:03] LABS: CKMB ISOENZYME 1.5 ng/ml (0.6-6.3)
== END 2016-05-09 04:48 | disposition home or self-care (01) ==
LOC: ED 03:09
DX: I48.91 Unspecified atrial fibrillation (principal); R00.2 Palpitations
CPT/HCPCS: 85025; 82553; 80053; 84484; 99284 ×2; 92960 ×2; 96360; 99152 ×2; 93005 ×2; J7030